=== PATIENT | male | born 1980 | race African-American/Black ===

== ENCOUNTER 2024-08-10 12:11 | Emergency (ER) | payer SELFPAY | END 2024-08-10 13:29 | disposition home or self-care (01) | LOC: CSHERS 12:11 | DX: J98.8 Other specified respiratory disorders (principal); B97.89 Other viral agents as the cause of diseases classified elsewhere; F17.210 Nicotine dependence, cigarettes, uncomplicated | CPT/HCPCS: 99283 ==